=== PATIENT | female | born 1940 | race Caucasian/White ===

== ENCOUNTER 2022-06-12 19:47 | Emergency (ER) | payer MEDICARE, SELFPAY ==
--- NOTE | ~2022-06-12 | CT_ITS ---
EXAMINATION: CT HEAD WITHOUT CONTRAST CT CERVICAL SPINE WITHOUT CONTRAST CLINICAL INFORMATION: Fall COMPARISON: None. TECHNIQUE: Multidetector CT imaging of the head and cervical spine was performed without the use of intravenous contrast. Multiplanar reformats are reviewed. This CT examination was performed using dose optimization techniques as appropriate, variously including the following: *Automated exposure control *Adjustment of mA and/or kV according to patient size (this includes techniques or standardized protocols for targeted exams where dose is matched to indication/reason for exam; i.e. extremities or head) *Use of iterative reconstruction technique DLP: 812 mGy-cm. FINDINGS: There is no evidence of acute intracranial hemorrhage or territorial infarction. No abnormal mass effect or midline shift is seen. Marquez to white matter differentiation is well preserved. No extra-axial fluid collections are identified. Moderate patchy subcortical and periventricular white matter low-attenuation changes. Generalized brain parenchymal volume loss, with commensurate prominence of the ventricular system, cortical sulci and fissures. 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 The osseous structures and soft tissues are normal. The mastoid air cells and visualized portions of the paranasal sinuses are well-aerated. Atlantooccipital alignment is maintained. The vertebral bodies and posterior elements align normally. No acute fracture or subluxation. Vertebral body heights are maintained. Small endplate osteophytes present at C5-C6 and C6-C7. Facet arthropathy present throughout cervical spine, bulky hypertrophic on the right at C3-C4 and C4-C5.. 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 The imaged lung apices are clear CT/CT cervical spine wo con IMPRESSION: * No acute intracranial pathology. Moderate white matter small vessel ischemic changes and generalized brain parenchymal volume loss. * No cervical spine fracture or malalignment.
[2022-06-12 20:12] VITALS: BP 138/78; PULSE 89; O2SAT 97
[2022-06-12 20:13] VITALS: BP 146/92; PULSE 68; RESP 18; TEMP 36.8; O2SAT 99; BMI 27.2
--- NOTE | 2022-06-12 21:02 | ED.FALL ---
HPI - Fall General Chief Complaint: Fall Stated Complaint: FALL Time Seen by Provider: 06/12/22 20:24 Source: patient and EMS Mode of arrival: EMS Limitations: other (Advanced dementia) History of Present Illness HPI Narrative: Patient comes to the emergency room via EMS from a dementia unit assisted living. Seems that patient had a witnessed fall. There is a visible trauma, patient denies any pain anywhere. Patient is not on any blood thinners. Per the facilities protocol, any patient that sustained a fall, needs to be transported to the hospital for evaluation Related Data Allergies Allergy/AdvReac Type Severity Reaction Status Date / Time No Known Allergies Allergy Verified 06/12/22 20:57 Review of Systems Review of Systems: Yes Other (Advanced dementia, denies any pain anywhere) [facility] Past Medical History Medical History (Updated 06/12/22 @ 21:07 by Catherine Donaldson MD) Dementia Social History Social History Advance Directives: No Advance Directives Information Provided: No Physical Exam Vital Signs: Vital Signs: Last Vital Signs Temp 98.3 F 06/12/22 20:13 Pulse 71 06/13/22 00:00 Resp 13 06/13/22 00:00 BP 146/68 H 06/13/22 00:00 Pulse Ox 97 06/13/22 00:00 O2 Del Method 06/13/22 00:00 BMI result Body Mass Index 27.2 Const: Other: Appearance: Alert. Oriented X1. No acute distress. Eyes: Pupils equal, round and reactive to light. ENT: Pharynx normal. Neck: Normal inspection. Neck supple. No lymph nodes noted. No crepitus CVS: Normal heart rate and rhythm. Pulses normal. Normal S1 and S2 Respiratory: No respiratory distress. Breath sounds normal. No Wheezing. No rales Abdomen: Soft and nontender. No rigidity. No distention. Skin: Skin warm and dry. Normal skin color. Normal skin turgor. Extremities: No lower extremity edema. Patient moving all her extremities, seems to have no pain with upper and lower extremities flexion extension and abduction, no hip pain Neuro: No slurred speech. CN 2 through 12 grossly intact Psych: calm, cooperative, normal affect Course Course Course Narrative: Patient does not seem to be in any pain at all. Patient has advanced dementia, unable to provide any history at all. Patient is awake, talking but nothing makes sense. She seems happily demented. We will go ahead and obtain a head and cervical spine CT. Patient does not seem to have any musculoskeletal pain at this time. Patient started to become very anxious, crying and screaming, punching her legs. Patient was given 1 dose of p.o. Ativan, patient was abl to calm down, get some rest and the CT scan was done successfully. CT scan does not show any acute abnormalities. Patient remains asymptomatic, patient ready for discharge MDM - Fall Imaging Data Head and cervical spine CT: Radiologist's impression: FINDINGS: There is no evidence of acute intracranial hemorrhage or territorial infarction. No abnormal mass effect or midline shift is seen. Marquez to white matter differentiation is well preserved. No extra-axial fluid collections are identified. Moderate patchy subcortical and periventricular white matter low-attenuation changes. Generalized brain parenchymal volume loss, with commensurate prominence of the ventricular system, cortical sulci and fissures. 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 The osseous structures and soft tissues are normal. The mastoid air cells and visualized portions of the paranasal sinuses are well-aerated. Atlantooccipital alignment is maintained. The vertebral bodies and posterior elements align normally. No acute fracture or subluxation. Vertebral body heights are maintained. Small endplate osteophytes present at C5-C6 and C6-C7. Facet arthropathy present throughout cervical spine, bulky hypertrophic on the right at C3-C4 and C4-C5.. 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 The imaged lung apices are clear ? CT/CT cervical spine wo con IMPRESSION: *? No acute intracranial pathology. Moderate white matter small vessel ischemic changes and generalized brain parenchymal volume loss. *? No cervical spine fracture or malalignment. Discharge Plan Discharge Clinical Impression: Fall Patient Disposition: Home, Self-Care Instructions: Fall Prevention for Older Adults (ED) Additional Instructions: Please follow-up with your primary care physician tomorrow. If you have any worsening or new symptoms, please return to the emergency room or call 911
[2022-06-12] MEDS: LORazepam 1 MG TABLET PO (21:39)
[2022-06-13] VITALS: BP 146/68; PULSE 71; RESP 13; O2SAT 97
--- NOTE | 2022-06-13 01:29 | PC.NURSE ---
call out to [facility] regarding transport of patient to [facility]. mirna from [facility] will try to pass the ambulance call to another ambulance service
== END 2022-06-13 02:32 | disposition home or self-care (01) ==
PROVIDERS: Emergency Provider Emergency Medicine; PCP Pediatrics
DX: F03.90 Unspecified dementia, unspecified severity, without behavioral disturbance, psychotic disturbance, mood disturbance, and anxiety (principal); Z91.81 History of falling
CPT/HCPCS: 70450; 72125; 99283; 99284